=== PATIENT | male | born 2000 | race Caucasian/White ===

== ENCOUNTER → 2023-08-08 14:00 | Outpatient (REF) | payer BC, OTHER, SELFPAY | LOC: MRI 3T 14:00 | PROVIDERS: ATTENDING PHYSICIAN Family Medicine | DX: R10.30 Lower abdominal pain, unspecified (principal); R10.9 Unspecified abdominal pain; R19.00 Intra-abdominal and pelvic swelling, mass and lump, unspecified site | CPT/HCPCS: 74181 ==

== ENCOUNTER → 2024-07-10 07:27 | Outpatient (REF) | payer BC, OTHER, SELFPAY | LOC: HWRAD 07:27 | PROVIDERS: ATTENDING PHYSICIAN Nurse Practitioner Family; FAMILY PHYSICIAN Family Medicine | DX: N50.811 Right testicular pain (principal) | CPT/HCPCS: 76870; 93976 ==